=== PATIENT | female | born 1960 | race Two or more races ===

== ENCOUNTER → 2016-12-02 | Outpatient (CLI) | payer MEDICAID ==
--- NOTE | 2016-12-02 10:22 | RADIOLOGY REPORT (SQ) ---
EXAM DESCRIPTION: CHEST PA/LATERAL COMPLETED DATE/TIME: 12/02/2016 9:59 am REASON FOR STUDY: SOB COMPARISON: Two-view chest 11/19/2015, 07/22/2015, 05/24/2011 EXAM PARAMETERS: NUMBER OF VIEWS: two views TECHNIQUE: Digital Frontal and Lateral radiographic views of the chest acquired. RADIATION DOSE: NA LIMITATIONS: none FINDINGS: LUNGS AND PLEURA: No opacities, masses or pneumothorax. No pleural effusion. MEDIASTINUM AND HILAR STRUCTURES: No masses or contour abnormalities. HEART AND VASCULAR STRUCTURES: Heart normal size. No evidence for failure. BONES: No acute findings. HARDWARE: Clips right upper quadrant post cholecystectomy OTHER: No other significant finding. IMPRESSION: NO SIGNIFICANT RADIOGRAPHIC FINDING IN THE CHEST. TECHNICAL DOCUMENTATION: JOB ID: [id number] [employer]- All Rights Reserved
--- NOTE | 2016-12-02 10:45 | EKG REPORT ---
SEVERITY:- DEFECTIVE ECG - BORDERLINE PROLONGED QT INTERVAL SINUS RHYTHM.BASELINE ARTIFACT. REPEAT EKG. : Confirmed by: Julieth Lozoya MD 02-Dec-2016 10:44:01
--- NOTE | 2016-12-07 23:40 | EKG REPORT ---
SEVERITY:- NORMAL ECG - SINUS RHYTHM : Confirmed by: Corey Robledo 07-Dec-2016 23:39:29
== END ==
LOC: OD 09:27
PROVIDERS: ATTEND Physician Assistant
DX: R07.9 Chest pain, unspecified (principal); R06.02 Shortness of breath
CPT/HCPCS: 71020; 93005; 93010

== ENCOUNTER 2016-12-08 08:54 | Day surgery (SDC) | payer MEDICAID ==
[~2016-12-08 08:54] MED LIST: DIPHENHYDRAMINE HCL 50 MG/ML VIAL ONE; EPINEPHRINE INJ 1 MG/10 ML DISP.SYRIN ONE; FLUMAZENIL INJ 0.5 MG/5 ML VIAL IV ONE; GLUCAGON,HUMAN RECOMB 1 MG INJ ONE; NALOXONE HCL INJ/PF 0.4 MG/1 ML SDV ONE; ONDANSETRON HCL INJ/PF 4 MG/2 ML SDV ONE
[2016-12-08] MEDS: MIDAZOLAM 2 MG/2 ML INJ ONE ×2 (11:12→11:17)
[2016-12-08] MEDS: FENTANYL CITRATE INJ/PF 100 MCG/2 ML AMPUL ONE ×2 (11:14→11:15)
--- NOTE | 2016-12-08 11:20 | Operative Report ---
Operative Report DATE OF SURGERY: 12/08/16 Operative Report: The risks benefits and alternatives of the procedure explained to the patient in detail and informed consent is obtained. A GIF Olympus video scope was inserted into the patient's mouth and hypopharynx, the esophagus is identified intubated and insufflated, the scope was then advanced through the esophagus stomach and duodenum, retroflexion maneuver is done, the esophagus stomach and first and second portions of the duodenum examined PREOPERATIVE DIAGNOSIS: Esophageal reflux disease, epigastric pain POSTOPERATIVE DIAGNOSIS: Gastritis status post biopsy rule out Helicobacter pylori. No ulcers noted OPERATION: EGD with biopsy SURGEON: ARTHUR JIMÉNEZ ANESTHESIA: Moderate Sedation - 4 mg of Versed, 100 mcg of fentanyl. Conscious sedation monitoring time 30 minutes. TISSUE REMOVED OR ALTERED: Gastric specimens obtained to rule out Helicobacter pylori COMPLICATIONS: None. ESTIMATED BLOOD LOSS: None. INTRAOPERATIVE FINDINGS: As described above. PROCEDURE: Patient tolerated the procedure well. No immediate postprocedure complications are noted. Patient discharged in good condition. Discharge date 12/08/2016. Discharge diet: Regular. Discharge activity: Regular. 2-3 week follow-up to discuss findings. We will wait on biopsies. Patient is instructed to call the office or proceed to the emergency room should there be any further problems or questions.
[2016-12-08 12:31] VITALS: BP 106/73
== END 2016-12-08 12:40 | disposition home or self-care (01) ==
LOC: END 08:54
PROVIDERS: ATTEND Internal Medicine Gastroenterology
PROC: 0DB68ZX Excision of Stomach, Via Natural or Artificial Opening Endoscopic, Diagnostic (ICD-10-PCS; principal; 2016-12-08 10:30)
DX: K29.50 Unspecified chronic gastritis without bleeding (principal); K21.9 Gastro-esophageal reflux disease without esophagitis; Z79.899 Other long term (current) drug therapy
CPT/HCPCS: 43239; 88342 ×2; 88305 ×2; J2250; J3010; J0171; J1200; J1610; J2310; J2405; J3490

== ENCOUNTER 2017-08-17 06:50 | Day surgery (SDC) | payer MEDICAID ==
[2017-08-17] MEDS ORDERED: DEXAMETHASONE SOD PHOSPHATE INJ 4 MG/1 ML VIAL ONE (07:05)
[2017-08-17] MEDS ORDERED: FENTANYL CITRATE INJ/PF 100 MCG/2 ML AMPUL ONE (07:06)
[2017-08-17] MEDS ORDERED: MIDAZOLAM 2 MG/2 ML INJ ONE (07:06)
[2017-08-17] MEDS ORDERED: LIDOCAINE 2% INJ-PF (20 MG/ML) 10 ML AMPUL ONE (07:06)
[2017-08-17] MEDS ORDERED: ONDANSETRON HCL INJ/PF 4 MG/2 ML SDV ONE (07:06)
[2017-08-17] MEDS ORDERED: PROPOFOL INJ 200 MG/20 ML VIAL IV ONE (07:07)
[2017-08-17] MEDS ORDERED: POLYMYXIN B SULFATE INJ 500000 UNIT VIAL ONE (07:10)
[2017-08-17] MEDS ORDERED: BUPIVACAINE HCL 0.5 % INJ/PF 30 ML SDV ONE (07:10)
[2017-08-17] MEDS ORDERED: LIDOCAINE 2% INJ (20 MG/ML) 20 ML MDV ONE (07:10)
[2017-08-17] MEDS ORDERED: NORMAL SALINE INJ/PF 0.9% 10 ML SDV ONE ×2 (07:11→08:13)
[2017-08-17] MEDS ORDERED: BACITRACIN INJ 50,000 UNIT VIAL ONE (07:11)
[2017-08-17] MEDS ORDERED: CEFAZOLIN 1 GM/D5W RTU 1 GM/50 ML RTUPB IV PRN (07:17)
[2017-08-17] MEDS ORDERED: BUPIVACAINE INJ/PF LIPOSOME/PF 266 MG/20 ML SDV ONE (07:18)
--- NOTE | 2017-08-17 11:08 | SURGICARE OPERATIVE REPORT E ---
[facility] Report NAME: MELANY ADAME AGE: 57Y DATE OF SURGERY: 08/17/2017 ROOM: PREOPERATIVE DIAGNOSIS: Hallux rigidus, right foot. POSTOPERATIVE DIAGNOSIS: Hallux rigidus with degenerative joint disease, right foot. SURGICAL PROCEDURE: Benítez bunionectomy with insertion of total Silastic implant, first metatarsophalangeal joint, right foot. SURGEON: TATA KELSEY DPM GEOGRAPHY TEACHER: Uriel Loo DPM PROCEDURE: Following the induction of IV regional local anesthesia the right foot and leg was prepped and draped in the usual sterile manner. A pneumatic tourniquet was placed around the right ankle and inflated to 250 mmHg after exsanguination of the limb via Esmarch bandage. The following surgical procedure was then performed: Benítez bunionectomy with insertion of total Silastic implant, first metatarsophalangeal joint, right foot. Attention was directed to the dorsal aspect of the first metatarsophalangeal joint. There was an old incision from a prior bunionectomy the patient had done. This old scar was sharply excised utilizing a semi-elliptical manner. It was removed en toto from the wound. The incision was then deepened through the subcutaneous tissue down to the capsule. A capsular incision was made in the same manner as the original skin incision and it was made medial to the extensor hallucis longus tendon. The capsule was then freed medially and laterally from the first metatarsophalangeal joint. Inspection of the joint showed that there was total erosion of the cartilage of both the metatarsal head and the base of the proximal phalanx. The base of the proximal phalanx was osteotomized perpendicular to the long axis of the bone approximately 0.5 cm distal to the joint and was freed from its soft tissue attachments and removed en toto from the wound. The cap on the head of the metatarsal was osteotomized perpendicular to the long axis of the bone and removed en toto from the wound. Any hypertrophied bone along the base of the proximal phalanx and the head of the first metatarsal was removed utilizing a rongeur. Utilizing a McGlamry elevator the sesamoids were freed from the plantar aspect of the first metatarsal. The head of the metatarsal was then reamed first utilizing a side-cutting bur and then utilizing a Bernie tree rasp. The site was reamed along the length of the metatarsal until utilizing the drapery hand for the implant could then be used to make sure that the reamed hole was deep enough to accept the implant. The same procedure was performed on the base of the proximal phalanx first utilizing the side-cutting rasp and then the [employer] tree rasp. It was determined that a 2S total Silastic implant with grommets was the correct size for this patient. The head of the metatarsal was then rasped smooth utilizing a [employer] Research[employer] rasp. The area was then flushed with copious amounts of antibacterial saline solution until no bony debris was noted in the wound. Bone wax was then applied to the freshly cut surfaces of the metatarsal head and the base of the proximal phalanx. A size 2S with grommets total Silastic implant was then inserted across the joint with the proximal stem going into the metatarsal and the distal stem being seated into the proximal phalanx. An x-ray was taken. It was noted that the implant was seated correctly and that the first metatarsophalangeal joint was in an anatomically correct position and the implant was the correct size for the patient's bone. The capsule was then coaptated and maintained utilizing simple interrupted sutures of 3-0 Vicryl. The subcutaneous tissue was then coaptated and maintained utilizing simple interrupted sutures of 4-0 Vicryl. Eight mL of Exparel was then injected along the length of the incision. The skin was then coaptated and maintained utilizing a running subcuticular suture of 5-0 Vicryl. The foot was then cleansed with an alcohol foam. The area was then dried and Benzoin was applied along the length of the incision, and the incision was then covered with 1/8 inch Steri-Strips. Dry sterile dressing was then applied consisting of Sukh silk, 4 x 4's, Conform, Kerlix and Coban. The pneumatic tourniquet was released. It was noted that all digits were warm and viable, and the patient was transferred to the recovery room. DICTATING PHYSICIAN: TATA KELSEY D.P.M. [id number] PHY#: [id number] ID: [id number] JOB#: [id number] ACCT: [id number] cc:TATA KELSEY DPM >
--- NOTE | 2017-08-17 11:13 | SURGICARE DISCHARGE SUMMARY E ---
[facility] Discharge Summary NAME: MELANY ADAME AGE: 57Y ADMITTED: 08/17/2017 DISCHARGED: 08/17/2017 SURGICAL PROCEDURE: Benítez bunionectomy with insertion of total Silastic implant first metatarsophalangeal joint right foot. POSTOPERATIVE DIAGNOSIS: Hallux rigidus with degenerative joint disease right foot. SURGEON: Tata Kelsey DPM GRADUATE RN: Uriel Loo DPM HOSPITAL COURSE: The patient was admitted to [facility] with chief complaint of a painful big toe joint on her right foot. She had surgery quite a few years ago, and for the past year, she has been having pain in that joint whenever she walked. The patient desired to have this problem surgically corrected. She underwent the above surgical procedure without any complications and was transferred to the recovery room. DISCHARGE INSTRUCTIONS: She was discharged with a surgical shoe and ice pack, postoperative prescriptions for Percocet 5/325 mg, #60, Phenergan 25 mg, #30, and cephalexin 500 mg, #4. She was also dispensed postoperative oral instructions. She was given a followup appointment in the doctor's office in 1 week, and she was discharged from [facility]. DICTATING PHYSICIAN: TATA KELSEY D.P.M. [id number] PHY#: [id number] ID: [id number] JOB#: [id number] ACCT: [id number] cc:TATA KELSEY DPM >
--- NOTE | 2017-08-17 21:27 | RADIOLOGY REPORT (SQ) ---
EXAM DESCRIPTION: NO CHG FLUORO; FOOT RIGHT 2 VIEWS COMPLETED DATE/TIME: 08/17/2017 6:49 pm REASON FOR STUDY: RT FOOT WILCOX BUNIONECTOMY COMPARISON: None. FLUOROSCOPY TIME: 6 seconds 4 Images saved to PACS LIMITATIONS: None. PROCEDURE: Bunionectomy FINDINGS: Bunionectomy. Refer to operative note for further information. IMPRESSION: Bunionectomy. Refer to operative note for further information. COMMENT: PQRS 6045F: Fluoroscopy time of the procedure is documented in the report. TECHNICAL DOCUMENTATION: JOB ID: [id number] [employer]- All Rights Reserved Reading location - IP/workstation name: [email or web address]
--- NOTE | 2017-08-17 21:27 | RADIOLOGY REPORT (SQ) ---
EXAM DESCRIPTION: NO CHG FLUORO; FOOT RIGHT 2 VIEWS COMPLETED DATE/TIME: 08/17/2017 6:49 pm REASON FOR STUDY: RT FOOT WILCOX BUNIONECTOMY COMPARISON: None. FLUOROSCOPY TIME: 6 seconds 4 Images saved to PACS LIMITATIONS: None. PROCEDURE: Bunionectomy FINDINGS: Bunionectomy. Refer to operative note for further information. IMPRESSION: Bunionectomy. Refer to operative note for further information. COMMENT: PQRS 6045F: Fluoroscopy time of the procedure is documented in the report. TECHNICAL DOCUMENTATION: JOB ID: [id number] [employer]- All Rights Reserved Reading location - IP/workstation name: [email or web address]
== END 2017-08-17 10:55 | disposition home or self-care (01) ==
LOC: SC 06:50 → EDSTATUS 07:30 → SC 10:55
PROVIDERS: ATTEND Podiatrist Foot Surgery
PROC: 0QBN0ZZ Excision of Right Metatarsal, Open Approach (ICD-10-PCS; principal; 2017-08-17 07:30)
DX: M20.21 Hallux rigidus, right foot (principal); M19.071 Primary osteoarthritis, right ankle and foot; I10 Essential (primary) hypertension; F17.210 Nicotine dependence, cigarettes, uncomplicated; K21.9 Gastro-esophageal reflux disease without esophagitis; Z79.899 Other long term (current) drug therapy
CPT/HCPCS: 73620; 28292; J2250; J3490 ×6; J0690; J1100; J3010; J2405; J2704; C9290; 01480

== ENCOUNTER → 2017-10-07 | Outpatient (CLI) | payer MEDICAID ==
--- NOTE | 2017-10-07 12:10 | RADIOLOGY REPORT (SQ) ---
EXAM DESCRIPTION: C SP 4 OR 5 VIEWS COMPLETED DATE/TIME: 10/07/2017 10:00 am REASON FOR STUDY: CERVICALGIA M54.2 CERVICALGIA COMPARISON: 07/10/2016 NUMBER OF VIEWS: Five views. TECHNIQUE: AP, lateral, obliques and odontoid radiographic images acquired of the cervical spine. LIMITATIONS: None. FINDINGS: There is straightening of the lordotic curve. There is disc space narrowing and osteophyt e formation at multiple levels which has progressed since the prior, especially at C4-5 and C6-7. Bi lateral neural foraminal spurs at these levels. No prevertebral soft tissue swelling. IMPRESSION: Cervical disc disease. TECHNICAL DOCUMENTATION: JOB ID: [id number] [employer]- All Rights Reserved Reading location - IP/workstation name: [facility]-[email or web address]
== END ==
LOC: OD 09:43
PROVIDERS: ATTEND Physician Assistant
DX: M54.2 Cervicalgia (principal); M50.821 Other cervical disc disorders at C4-C5 level
CPT/HCPCS: 72050

== ENCOUNTER → 2017-10-07 | Outpatient (CLI) | payer MEDICAID ==
--- NOTE | 2017-10-07 13:03 | WOMENS IMAGING REPORT ---
EXAM DESCRIPTION: BILAT SCREENING MAMMO W/CAD COMPLETED DATE/TIME: 10/07/2017 10:40 am REASON FOR STUDY: ROUTINE SCREENING;Z12.31 Z12.31 ENCNTR SCREEN MAMMOGRAM FOR MALIGNANT NEOPLASM OF [place]ZBIETA COMPARISON: [id number] TECHNIQUE: Standard craniocaudal and mediolateral oblique views of each breast recorded using [employer] l acquisition. LIMITATIONS: None. FINDINGS: No masses, calcifications or architectural distortion. No areas of suspicion. Read with the assistance of CAD. .[facility] - R2 Cenova Version 1.3 .[facility] - R2 Cenova Version 1.3 .[facility] - R2 Cenova Version 2.4 .[facility] - R2 Cenova Version 2.4 .[facility] - R2 Mechanical Cad Drafter Version 9.2 IMPRESSION: NORMAL MAMMOGRAM. BIRADS 1. BREAST DENSITY: b. There are scattered areas of fibroglandular density. BIRAD: 1 NEGATIVE RECOMMENDATION: ROUTINE SCREENING COMMENT: The patient has been notified of the results by letter per SA requirements. Additional no tification policies are in place for contacting patient with suspicious or incomplete findings. Quality ID #225: The [employer] recommends an annual screening mammogram for women aged 40 years or over. This facility utilizes a reminder system to ensure that all patients receive reminder letters, and/or direct phone calls for appointments. This includes reminders for routine scr eening mammograms, diagnostic mammograms, or other Breast Imaging Interventions when appropriate. Th is patient will be placed in the appropriate reminder system. The [employer] (ACR) has developed recommendations for screening MRI of the breast s in certain patient populations, to be used in conjunction with mammography. Breast MRI surveillanc e may be appropriate for women with more than 20% lifetime risk of developing breast cancer as deter mined by genetic testing, significant family history of the disease, or history of mantle radiation f or Hodgkins Disease. ACR Practice Guidelines 2008. TECHNICAL DOCUMENTATION: FINDING NUMBER: (1) ASSESSMENT: (1) JOB ID: [id number] [employer]- All Rights Reserved Reading location - IP/workstation name: [facility]
== END ==
LOC: WI 10:13
PROVIDERS: ATTEND Obstetrics & Gynecology Gynecology
DX: Z12.31 Encounter for screening mammogram for malignant neoplasm of breast (principal)
CPT/HCPCS: 77067

== ENCOUNTER 2017-10-27 08:37 | Day surgery (SDC) | payer MEDICAID ==
[2017-10-27] MEDS ORDERED: PROPOFOL INJ 200 MG/20 ML VIAL IV ONE (12:07)
--- NOTE | 2017-10-27 13:18 | Operative Report ---
Operative Report DATE OF SURGERY: 10/27/17 Operative Report: The risks, benefits and alternatives of the procedure including risks of bleeding, perforation requiring surgery are explained to the patient in detail and informed consent is obtained. Patient is brought back to the operating room and placed in the left, lateral decubital position. Timeout was called. Propofol medications administered. A rectal examination is done which did not reveal any masses, tears or fissures. An Olympus videoscope was inserted into the patient's rectum. The scope was then carefully advanced all the way to the cecum. The cecum was identified by the usual anatomical landmarks including the ileocecal valve as well as the appendiceal office. Photodocumentation is obtained. Prep is good. The scope was then sequentially pulled back via the various segments of the colon including the ascending colon, hepatic flexure, transverse colon, splenic flexure, descending colon and finally in to the rectosigmoid portions of the colon. Retroflexion was performed. The risks benefits and alternatives of the procedure explained to the patient in detail and informed consent is obtained.A GIF Olympus video scope was inserted into the patient's mouth and hypopharynx ,the esophagus is identified intubated and insufflated, the scope was then advanced through the esophagus stomach and duodenum, retroflexion maneuver is done ,the esophagus stomach and first and second portions of the duodenum examined PREOPERATIVE DIAGNOSIS: Change in bowel habits. Gastroesophageal reflux disease POSTOPERATIVE DIAGNOSIS: Mild right-sided colon inflammation status post biopsy. Internal hemorrhoids. Small hiatal hernia. Gastritis status post biopsy OPERATION: EGD with biopsy. Colonoscopy with biopsy SURGEON: ARTHUR JIMÉNEZ ANESTHESIA: LMAC TISSUE REMOVED OR ALTERED: As noted above. COMPLICATIONS: None. ESTIMATED BLOOD LOSS: None. INTRAOPERATIVE FINDINGS: As noted above. PROCEDURE: Patient tolerated procedure well. No immediate postprocedure complications are noted. Patient discharged in good condition. Discharge date 10/27/2017. Discharge diet: Regular. Discharge activity: Regular. 2-3 week follow-up to discuss findings. Patient is instructed to call the office or proceed to the emergency room should there be any further problems or questions. We will await pathology.
[2017-10-27 15:18] VITALS: BP 136/90
== END 2017-10-27 14:50 | disposition home or self-care (01) ==
LOC: OROUT 08:37
PROVIDERS: ATTEND Internal Medicine Gastroenterology
DX: K52.9 Noninfective gastroenteritis and colitis, unspecified (principal); K64.8 Other hemorrhoids; K44.9 Diaphragmatic hernia without obstruction or gangrene; K29.70 Gastritis, unspecified, without bleeding; K21.9 Gastro-esophageal reflux disease without esophagitis; F17.210 Nicotine dependence, cigarettes, uncomplicated; Z79.899 Other long term (current) drug therapy; Z79.1 Long term (current) use of non-steroidal anti-inflammatories (NSAID)
CPT/HCPCS: 43239; 45380; 36415; 84132; 88342 ×2; 88305 ×2; J2704; 813

== ENCOUNTER 2018-03-15 08:53 | Day surgery (SDC) | payer MEDICAID ==
[~2018-03-15 08:53] MED LIST changes: +CEFAZOLIN 1 GM/D5W RTU 1 GM/50 ML RTUPB IV PRN; -DIPHENHYDRAMINE HCL 50 MG/ML VIAL ONE; -EPINEPHRINE INJ 1 MG/10 ML DISP.SYRIN ONE; -FLUMAZENIL INJ 0.5 MG/5 ML VIAL IV ONE; -GLUCAGON,HUMAN RECOMB 1 MG INJ ONE; -NALOXONE HCL INJ/PF 0.4 MG/1 ML SDV ONE; -ONDANSETRON HCL INJ/PF 4 MG/2 ML SDV ONE
[2018-03-15] MEDS ORDERED: KETOROLAC TROMETHAMINE 60 MG/2 ML SDV ONE (09:45)
[2018-03-15] MEDS ORDERED: MIDAZOLAM 2 MG/2 ML INJ ONE (09:45)
[2018-03-15] MEDS ORDERED: FENTANYL CITRATE INJ/PF 100 MCG/2 ML AMPUL ONE (09:45)
[2018-03-15] MEDS ORDERED: LIDOCAINE 2% INJ-PF (20 MG/ML) 10 ML AMPUL ONE (09:45)
[2018-03-15] MEDS ORDERED: BUPIVACAINE HCL 0.5 % INJ/PF 30 ML SDV ONE (09:46)
[2018-03-15] MEDS ORDERED: LIDOCAINE 2% INJ (20 MG/ML) 20 ML MDV ONE (09:46)
[2018-03-15] MEDS ORDERED: PROPOFOL INJ 200 MG/20 ML VIAL IV ONE ×2 (09:46→10:38)
[2018-03-15] MEDS: POLYMYXIN B SULFATE INJ 500000 UNIT VIAL ONE ×2 (11:32)
[2018-03-15] MEDS: BACITRACIN INJ 50,000 UNIT VIAL ONE ×2 (11:32)
[2018-03-15] MEDS: NORMAL SALINE INJ/PF 0.9% 10 ML SDV ONE ×2 (11:32)
[2018-03-15] MEDS: BUPIVACAINE INJ/PF LIPOSOME/PF 266 MG/20 ML SDV ONE ×2 (11:44)
--- NOTE | 2018-03-15 13:16 | SURGICARE OPERATIVE REPORT E ---
[facility] Report NAME: MELANY ADAME AGE: 57Y DATE OF SURGERY: 03/15/2018 ROOM: PREOPERATIVE DIAGNOSIS: Hallux valgus, left foot. POSTOPERATIVE DIAGNOSIS: Hallux valgus, left foot. SURGICAL PROCEDURE: Addison osteotomy with internal fixation, left foot. SURGEON: TATA KELSEY DPM REAL ESTATE ACQUISITION ANALYST: JONEL CARRERA DPM PROCEDURE: Following induction of IV regional and local anesthesia, the left foot and leg were prepped and draped in the usual sterile manner. A pneumatic tourniquet was placed around the left ankle and inflated to 150 mmHg after exsanguination of the limb via Esmarch bandage. The following surgical procedure was then performed: Addison osteotomy with internal fixation left foot. Attention was directed to the dorsal aspect of the first metatarsophalangeal joint of the left foot where an approximately 5 cm dorsal linear incision was made. The incision was deep and via sharp dissection. All bleeders were clamped and bovied as necessary for the purposes of hemostasis. Attention was directed into the first interspace. The transverse adductor tendon was identified, isolated, and sharply incised. The attention was directed back to the dorsal aspect of the first metatarsophalangeal joint where a capsular incision was made in the same manner of the original skin incision and was made medial to the extensor hallucis longus tendon. The capsule was then reflected medially and laterally from the bone. The sesamoids were freed from scar tissue utilizing a McGlamry elevator. An Addison osteotomy was then performed in the proximal phalanx of the hallux with the base being distal medial and the apex being proximal lateral. An approximately 2 mm wedge of bone was removed. This was performed utilizing a [employer] sagittal saw. The osteotomy was then temporarily fixated with a 0.86 mm guidewire, which was directed from proximal medial to distal lateral. An x-ray was taken and it was noted that the osteotomy was closed down on itself and the first metatarsophalangeal joint was in a more anatomically correct position and the guidewire was in good position. The reamer measure was then threaded down the guidewire and it was noted that a 24 mm x 2.3 mm cancellous screw would be needed. The proximal aspect of the osteotomy was then overdrilled utilizing a 1.7 mm drill bit. The 24 mm x 2.3 mm cannulated screw was then threaded down the guidewire and tightened down until the osteotomy was stably fixated and tightened. The guidewire was then removed. Another x-ray was taken. It was noted that this screw was in good position. The osteotomy was closed down on itself, and that there were 2 threads visible on the lateral aspect of the cortex. The area was then flushed with copious amounts of an antibacterial saline solution. The capsule was then coapted and maintained utilizing simple interrupted sutures of 3-0 Vicryl. The extensor hallucis longus tendon was then lengthened by nicking the tendon alternating medial and lateral at approximately 1 cm distances. The attention was then tacked medially utilizing 3-0 Vicryl. The subcutaneous tissue was then coapted and maintained utilizing simple interrupted sutures of 4-0 Vicryl. Total of 20 mL of Exparel was then injected along the length of the incision subcutaneously and then along the surgical site. The skin was then coapted and maintained utilizing horizontal mattress sutures of 5-0 nylon. The foot was then cleansed with alcohol foam. Dry sterile dressing was then applied consisting of Sukh silk, 4 x 4s, Conform, Kerlix, and Coban. The pneumatic tourniquet was released. It was noted that all digits were warm and viable, and the patient was transferred to the recovery room. DICTATING PHYSICIAN: TATA KELSEY D.P.M. [id number] PHY#: [id number] ID: [id number] JOB#: [id number] ACCT: [id number] cc:TATA KELSEY DPM >
--- NOTE | 2018-03-15 15:11 | RADIOLOGY REPORT (SQ) ---
EXAM DESCRIPTION: NO CHG FLUORO; FOOT LEFT 2 VIEWS COMPLETED DATE/TIME: 03/15/2018 2:53 pm REASON FOR STUDY: LT FOOT BUNIONECTOMY, OSTEOTOMY M20.12 HALLUX VALGUS (ACQUIRED), LEFT FOOT COMPARISON: None. FLUOROSCOPY TIME: 4 seconds 1 images saved to PACS. TECHNIQUE: Intra-operative images acquired during surgical procedure to evaluate progress. NUMBER OF IMAGES: 1 LIMITATIONS: None. FINDINGS: Single image from cancellous screw placement in the proximal 1st phalanx from a medial devang catalan. IMPRESSION: IMAGE(S) OBTAINED DURING PROCEDURE. COMMENT: Quality ID 145: Final reports for procedures using fluoroscopy that document radiation exp osure indices, or exposure time and number of fluorographic images (if radiation exposure indices are not available) Please consult full operative report of the attending physician for description of the procedure. TECHNICAL DOCUMENTATION: JOB ID: [id number] [employer]- All Rights Reserved Reading location - IP/workstation name: [email or web address]
--- NOTE | 2018-03-15 15:11 | RADIOLOGY REPORT (SQ) ---
EXAM DESCRIPTION: NO CHG FLUORO; FOOT LEFT 2 VIEWS COMPLETED DATE/TIME: 03/15/2018 2:53 pm REASON FOR STUDY: LT FOOT BUNIONECTOMY, OSTEOTOMY M20.12 HALLUX VALGUS (ACQUIRED), LEFT FOOT COMPARISON: None. FLUOROSCOPY TIME: 4 seconds 1 images saved to PACS. TECHNIQUE: Intra-operative images acquired during surgical procedure to evaluate progress. NUMBER OF IMAGES: 1 LIMITATIONS: None. FINDINGS: Single image from cancellous screw placement in the proximal 1st phalanx from a medial devang catalan. IMPRESSION: IMAGE(S) OBTAINED DURING PROCEDURE. COMMENT: Quality ID 145: Final reports for procedures using fluoroscopy that document radiation exp osure indices, or exposure time and number of fluorographic images (if radiation exposure indices are not available) Please consult full operative report of the attending physician for description of the procedure. TECHNICAL DOCUMENTATION: JOB ID: [id number] [employer]- All Rights Reserved Reading location - IP/workstation name: [email or web address]
--- NOTE | 2018-03-15 15:31 | SURGICARE DISCHARGE SUMMARY E ---
[facility], [place] Discharge Summary NAME: MELANY ADAME AGE: 57Y ADMITTED: 03/15/2018 DISCHARGED: 03/15/2018 SURGICAL PROCEDURE: Addison osteotomy with internal fixation, left foot. POSTOPERATIVE DIAGNOSIS: Hallux valgus left foot. DISCHARGE SUMMARY: The patient was admitted to [facility] with a chief complaint of a painful big toe joint and that her big toe was rubbing up against the second toe on her left foot. She had bunion surgery a number of years ago on that foot and since then she is starting to have some problem. She failed conservative therapy to help with the pain in the big toe and decided to have the problem surgically corrected. She underwent the above surgical procedure without any complications and was transferred to the recovery room. She was discharged with an ice pack, a surgical shoe, postoperative instructions and postoperative prescriptions for Percocet 5/325 mg #60, Phenergan 25 mg #30, and cephalexin 500 mg #4. She was given a follow up appointment in doctor's office in 1 week and the patient was discharged from [facility] [place]. DICTATING PHYSICIAN: TATA KELSEY D.P.M. [id number] PHY#: [id number] ID: [id number] JOB#: [id number] ACCT: [id number] cc:TATA KELSEY DPM > MTDD
== END 2018-03-15 13:00 | disposition home or self-care (01) ==
LOC: SC 08:53
PROVIDERS: ATTEND Podiatrist Foot Surgery
DX: M20.12 Hallux valgus (acquired), left foot (principal); I10 Essential (primary) hypertension; K21.9 Gastro-esophageal reflux disease without esophagitis; F17.210 Nicotine dependence, cigarettes, uncomplicated; M19.90 Unspecified osteoarthritis, unspecified site; Z79.899 Other long term (current) drug therapy
CPT/HCPCS: 28298; 73620; C1713; C1769; J2250; J3490 ×6; J0690; J1885; J3010; J2704; C9290; 01480

== ENCOUNTER → 2018-05-11 | Outpatient (CLI) | payer MEDICAID ==
[2018-05-11 08:34] LABS: HEMATOCRIT 40.8 % (36.0-47.0); HEMOGLOBIN 13.9 g/dL (12.0-15.5); MEAN CORPUSCULAR HEMOGLOBIN 27.1 pg (27.0-33.4); MEAN CORPUSCULAR VOLUME 80 fl (80-97); PLATELET COUNT 228 10^3/uL (150-450); RED BLOOD COUNT 5.11 10^6/uL (3.72-5.28); RED CELL DISTRIBUTION WIDTH 13.9 % (11.5-14.0); WHITE BLOOD COUNT 6.2 10^3/uL (4.0-10.5)
[2018-05-11 09:11] LABS: ERYTHROCYTE SEDIMENTATION RATE 24 mm/hr (0-30)
== END ==
LOC: OD 07:48
PROVIDERS: ATTEND Family Medicine
DX: M25.50 Pain in unspecified joint (principal)
CPT/HCPCS: 36415; 84443; 85027; 85652; 86038; 86140; 86430; 86592

== ENCOUNTER 2018-09-26 16:58 | Emergency (ER) | payer MEDICAID ==
--- NOTE | 2018-09-26 19:07 | ER Document Report ---
ED Respiratory Problem - General Mode of Arrival: Ambulatory Information source: Patient TRAVEL OUTSIDE OF THE [place] IN LAST 30 DAYS: No - HPI Patient complains to provider of: Cough, Other - Chest wall pain the last 2-1/2 weeks Onset: Other - 2-1/2 weeks Duration: Continuous Initiating Event: URI Quality of pain: Burning, Sharp Severity: Moderate Pain Level: 4 Context: Smoker. denies: DVT, Hx asthma, Hx CHF, Hx COPD Cough: Nonproductive Associated symptoms: Chest pain/discomfort - With cough or deep breathing, Congestion, Cough, PND, Runny nose - General Chief Complaint: Cold Symptoms Stated Complaint: CHEST PAIN Time Seen by Provider: 09/26/18 18:53 - Related Data Allergies/Adverse Reactions: No Known Allergies Allergy (Verified 09/26/18 17:16) Past Medical History - General Information source: Patient - Social History Smoking Status: Current Some Day Smoker Cigarette use (# per day): Yes Smoking Education Provided: Yes - 4 min Frequency of alcohol use: Occasional Lives with: Family Family History: Reviewed & Not Pertinent Patient has suicidal ideation: No Patient has homicidal ideation: No - Past Medical History Cardiac Medical History: Reports: Hx Hypertension - MEDICATED,CARDIAC WORK UP LAST YEAR Pulmonary Medical History: Reports: None EENT Medical History: Reports: None Neurological Medical History: Reports: None Endocrine Medical History: Reports: None Renal/ Medical History: Reports: None, Hx Kidney Stones Malignancy Medical History: Reports: None GI Medical History: Reports: Hx Gastroesophageal Reflux Disease - no meds, Hx Ulcer Musculoskeletal Medical History: Reports Hx Arthritis - BACK, Reports Hx Musculoskeletal Deformity, Reports Hx Musculoskeletal Trauma Skin Medical History: Reports None Psychiatric Medical History: Reports: Hx Anxiety, Hx Depression Traumatic Medical History: Reports: Hx Fractures - rib x 1 RIGHT , RIGHT radial fx 2007 plates/screws,Dr Collins Infectious Medical History: Reports: None Past Surgical History: Reports: Hx Section - 11/13/95 & 09/01/97, Hx Cholecystectomy - lap, Hx Kidney (Renal Surgery) - stone removal, Hx Orthopedic Surgery - tkr right,, Hx Tonsillectomy, Hx Tubal Ligation - Immunizations Immunizations up to date: No Hx Diphtheria, Pertussis, Tetanus Vaccination: Yes Hx Pneumococcal Vaccination: 01/31/13 Review of Systems - Review of Systems Constitutional: Recent illness EENT: Nose discharge, Sinus discharge Cardiovascular: Chest pain - Chest wall pain from the left upper chest around to the back down to the mid abdomen when she coughs congestion or deep breathes. Respiratory: Cough Gastrointestinal: No symptoms reported Genitourinary: No symptoms reported Female Genitourinary: No symptoms reported Musculoskeletal: No symptoms reported Skin: No symptoms reported Hematologic/Lymphatic: No symptoms reported Neurological/Psychological: No symptoms reported -: Yes All other systems reviewed and negative Physical Exam - Vital signs Interpretation: Normal - General General appearance: Appears well, Alert - HEENT Head: Normocephalic, Atraumatic Eyes: Normal Pupils: PERRL Ears: Normal External canal: Normal Tympanic membrane: Normal Sinus: Normal Nasal: Purulent discharge, Swelling Mouth/Lips: Normal Mucous membranes: Normal Pharynx: Post nasal drainage Neck: Normal - Respiratory Respiratory status: No respiratory distress Chest status: Tender Breath sounds: Normal, Nonproductive cough. No: Productive cough, Rales, Rhonchi, Stridor, Wheezing Chest palpation: Normal - Cardiovascular Rhythm: Regular Heart sounds: Normal auscultation Murmur: No - Abdominal Inspection: Normal Distension: No distension Bowel sounds: Normal Tenderness: Nontender Organomegaly: No organomegaly - Back Back: Normal, Nontender - Extremities General upper extremity: Normal inspection, Nontender, Normal color, Normal ROM, Normal temperature General lower extremity: Normal inspection, Nontender, Normal color, Normal ROM, Normal temperature, Normal weight bearing. No: Parviz's sign - Neurological Neuro grossly intact: Yes Cognition: Normal Orientation: AAOx4 [place] Coma Scale Eye Opening: Spontaneous [place] Coma Scale Verbal: Oriented [place] Coma Scale Motor: Obeys Commands Fabiola Coma Scale Total: 15 Speech: Normal Motor strength normal: LUE, RUE, LLE, RLE Sensory: Normal - Psychological Associated symptoms: Normal affect, Normal mood - Skin Skin Temperature: Warm Skin Moisture: Dry Skin Color: Normal - Vital signs Vitals: Temp Pulse Resp BP Pulse Ox 98.2 F 94 18 141/93 H 100 09/26/18 17:54 09/26/18 17:54 09/26/18 17:54 09/26/18 17:54 09/26/18 17:54 Course - Diagnostic Test Radiology reviewed: Image reviewed, Reports reviewed - EKG Interpretation by Me EKG shows normal: Sinus rhythm Rate: Normal Rhythm: NSR When compared to previous EKG there are: No significant change - Re-evaluation Re-evalutation: 09/26/18 21:[address] Snow for this 58-year-old female with complaint of chest wall pain from the left shoulder area to the mid abdomen area that is her "heart pain "but she has no history of high blood pressure, cholesterol, or any cardiac history. She has been cleared for any cardiac problems about a year ago. Patient does have postnasal drip and sinus drainage and has had a cough off and on. She states the pain is much worse when she takes a deep breath or coughs. Dr. Snow recommended a EKG and a chest x-ray which were both negative and shown to Dr. Snow. She stated the patient does not have any cardiac concerns at this time and she can go home to follow-up with her primary care doctor. Patient verbalizes understanding and agreement with treatment plan and states she will call her primary care doctor to follow-up. (BRYAN KHAN) 09/27/18 03:35 Patient was evaluated as requested by [facility]. Patient alert, awake and in no acute distress. Exam and history not consistent with ACS. EKG and chest x-ray reviewed and within normal limits. PHYSICAL EXAMINATION: GENERAL: Well-appearing, well-nourished and in no acute distress. HEAD: Atraumatic, normocephalic. EYES: Pupils equal round extraocular movements intact, conjunctiva are normal. Cardiac: RRR no murmurs ENT: Nares patent NECK: Normal range of motion LUNGS: No respiratory distress Musculoskeletal: Normal range of motion NEUROLOGICAL: Normal speech, normal gait. PSYCH: Normal mood, normal affect. SKIN: Warm, Dry, normal turgor, no rashes or lesions noted. (NICKY SNOW) - Vital Signs Vital signs: Temp Pulse Resp BP Pulse Ox 98.0 F 78 19 128/74 H 99 09/26/18 19:47 09/26/18 19:47 09/26/18 19:47 09/26/18 19:47 09/26/18 19:47 Discharge - Discharge Clinical Impression: URI (upper respiratory infection), Chest wall pain Condition: Stable Disposition: HOME, SELF-CARE Instructions: Family Physicians / Practices Additional Instructions: UPPER RESPIRATORY ILLNESS: You have a viral infection of the respiratory passages -- a "cold." This common infection causes nasal congestion, drainage, and often sore throat and cough. It is highly contagious. The disease usually lasts about 10 to 14 days. There is no "cure" for the viral infection -- it must run its course. If there is a complication, such as bacterial infection in the nose, sinuses, middle ear, or bronchial tubes, antibiotics may be required. The antibiotics won't affect the virus. Drink plenty of fluids. A humidifier may help. An expectorant medication or decongestant may make you more comfortable. Use acetaminophen or ibuprofen for fever or aches. See the doctor if fever persists over two days, if there is any significant worsening of your symptoms, or if you simply fail to improve as expected. Chest Wall Pain Your chest pain has been diagnosed as coming from the chest wall. This is often caused by straining the muscles or joints in the chest during physical activity, direct trauma, coughing, or vigorous vomiting. Persons with arthritis are especially prone to this type of pain, due to inflammation of the cartilage joints near the breast bone. Occasionally, no cause can be found. Rest from strenuous physical activity. This kind of chest pain is usually made worse by movement of the chest. Depending on the symptoms, we may prescribe medicine for pain, muscle relaxation, and antiinflammatory effects. If the pain is new, and seems to be due to muscle strain, cold packs can help. Otherwise, apply gentle warmth to the painful area for 15 minutes every hour or two. You should contact the doctor immediately if things change. Further evaluation is needed if you develop a fever or cough, if the nature of the pain changes, or if you become short of breath. COUGH-SUPPRESSANT & EXPECTORANT MEDICATION: You are to use a cough medication as needed for relief of symptoms. This medicine is a combination of an expectorant (to make the mucous thinner and more easily "coughed up") and a cough suppressant (to reduce the frequency of coughing). The cough-suppressant medicine is related to narcotics. You may experience mild nausea and sleepiness. Some patients who are very sensitive to narcotics may have stomach pain from this medicine. Taking the medicine with food reduces these side effects. Do not drive or work with machinery until you know how this medicine affects you. The expectorant should have no side effects. Iodine-containing expectorants (such as organidin) should not be taken by persons with active thyroid disease unless approved by your doctor. Call the doctor if you develop shortness of breath, hives, rash, itching, lightheadedness, or severe nausea and vomiting. USE OF ACETAMINOPHEN (Tylenol): Acetaminophen may be taken for pain relief or fever control. It's much safer than aspirin, offering a wider range of "safe" dosages. It is safe during . Some brand names are Tylenol, Panadol, Datril, Anacin 3, Tempra, and Liquiprin. Acetaminophen can be repeated every four hours. The following are maximum recommended dosages: >89 pounds or adults 650 mg to 900 mg Acetaminophen can be repeated every four hours. Maximum dose not to exceed 4000 mg a day. SMOKING: If you smoke, you should stop smoking. The tar and chemicals in cigarette smoke are harmful. Smoking has been shown to cause: emphysema chronic bronchitis lung cancer mouth and throat cancer stomach and pancreas cancer premature aging defects In addition, smoking increases ear and lung infections in children of smokers. Your chest x-ray is negative as well is your EKG. Please follow-up with your primary doctor by telephone tomorrow to schedule a follow-up appointment. FOLLOW-UP CARE: If you have been referred to a physician for follow-up care, call the physicians office for an appointment as you were instructed or within the next two days. If you experience worsening or a significant change in your symptoms, notify the physician immediately or return to the Emergency Department at any time for re-evaluation. Forms: Smoking Cessation Education, Elevated Blood Pressure
--- NOTE | 2018-09-26 19:48 | EKG REPORT ---
SEVERITY:- NORMAL ECG - SINUS RHYTHM : Confirmed by: Julieth Lozoya MD 26-Sep-2018 19:47:49
[2018-09-26 19:49] VITALS: BP 128/74
--- NOTE | 2018-09-26 20:06 | RADIOLOGY REPORT (SQ) ---
EXAM DESCRIPTION: XR CHEST 2 VIEWS COMPLETED DATE/TME: 09/26/2018 19:06 CLINICAL HISTORY: 58 years, Female, cough congestion chest pain EXAM DESCRIPTION: CLINICAL HISTORY: cough congestion chest pain COMPARISON: None. FINDINGS: Two views of the chest are submitted. Clips are in the right upper quadrant. Cardiac silhouette appears normal. No focal parenchymal or pleural disease. No acute bony abnormality. There is no significant pulmonary vascular engorgement. IMPRESSION: No evidence of acute cardiopulmonary disease.
== END 2018-09-26 19:49 | disposition home or self-care (01) ==
LOC: ER 16:58
DX: J06.9 Acute upper respiratory infection, unspecified (principal); R07.89 Other chest pain; R05 Cough; R09.82 Postnasal drip; R09.89 Other specified symptoms and signs involving the circulatory and respiratory systems; F17.210 Nicotine dependence, cigarettes, uncomplicated; Z71.6 Tobacco abuse counseling
CPT/HCPCS: 71046; 93005; 93010; 99283; 99406